=== PATIENT | male | born 1960 | race Caucasian/White ===

== ENCOUNTER 2023-04-11 07:59 | Emergency (ER) | payer OTHER ==
[~2023-04-11] VITALS: Ht 170.2 cm; Wt 88.2 kg
[2023-04-11 08:00] VITALS: BP 147/73; TEMP 98; O2SAT 96
[2023-04-11] MEDS ORDERED: NORV5TAB PO (08:13)
[2023-04-11] MEDS ORDERED: PRAS10TA2 PO (08:13)
[2023-04-11] MEDS ORDERED: FLOM0.4C39 PO (08:13)
[2023-04-11] MEDS ORDERED: ATOR80TA59 PO (08:13)
[2023-04-11] MEDS ORDERED: METF-838 PO (08:13)
[2023-04-11] MEDS ORDERED: METO1TAB32 PO (08:13)
== END 2023-04-11 09:25 | disposition left against medical advice (07) ==
LOC: M ED 07:59
DX: Z53.21 Procedure and treatment not carried out due to patient leaving prior to being seen by health care provider (principal)